=== PATIENT | male | born 1945 | race Caucasian/White ===

== ENCOUNTER 2017-11-10 10:33 | Emergency (ER) | payer OTHER, MEDICARE ==
[~2017-11-10] VITALS: Ht 172.7 cm; Wt 79.5 kg
[~2017-11-10 10:33] MED LIST: SYNT200T PO; ZITH250T PO
[2017-11-10 10:54] VITALS: BP 204/93; PULSE 57; RESP 18; TEMP 97.8; O2SAT 98
[2017-11-10 11:28] VITALS: BP 205/99; PULSE 58; RESP 17; TEMP 98; O2SAT 97
[2017-11-10] MEDS ORDERED: LEVO.2 PO (11:30)
[2017-11-10] MEDS ORDERED: CEPH-459 PO (11:32)
[2017-11-10] MEDS ORDERED: SULFAMETHOXAZOLE-TRIMETHOPRIM DS 800-160 MG TAB PO ONE (11:45)
[2017-11-10] MEDS ORDERED: BACT800T5 PO (11:45)
--- NOTE | 2017-11-10 11:45 | PD ---
HPI Chief Complaint: Skin Problem Time Seen by Provider: 11:14 Travel History International Travel<30 days: No Contact w/Intl Traveler<30days: No Traveled to known affect area: No History of Present Illness HPI The patient is a 72-year-old male who presents to the emergency department for a wound on the left lower extremity. The patient states he noticed the wound on the left lower extremity last week, initially thought he might have been bitten by an insect. The areas was slightly painful, erythematous, and swollen. The patient was seen at the [place] [facility] on Friday and they prescribed Keflex. He called the [facility] earlier today and they referred him to the emergency department. He denies any fever, chills, or sweats. He denies any trauma to the left lower extremity. He denies any history of repetitive MRSA infections, diabetes, or immunosuppressive disorders. He does have a history of hypothyroidism for which he takes levothyroxine. Symptoms are mild to moderate. PFSH Past Medical History High Cholesterol: Yes Thyroid Disease: Yes Influenza Vaccination: No Past Surgical History Surgical History: No Previous Surgery Social History Alcohol Use: Yes (social) Tobacco Use: No Substance Use: No Allergies-Medications (Allergen,Severity, Reaction): Coded Allergies: No Known Allergies (Unverified , 12/11/15) Reported Meds & Prescriptions Reported Meds & Active Scripts Active Reported Keflex (Cephalexin) 250 Mg Cap 250 Mg PO Q6H Synthroid (Levothyroxine Sodium) 200 Mcg Tab 200 Mcg PO DAILY Review of Systems Except as stated in HPI: all other systems reviewed are Neg General / Constitutional: No: Fever, Chills Musculoskeletal: No: Myalgias, Arthralgias Skin: Positive Other Neurologic: No: Paresthesia, Sensory Disturbance Physical Exam Narrative GENERAL: Awake, alert, pleasant 72-year-old male who appears his stated age and is in no acute respiratory distress. SKIN: Focused skin assessment warm/dry. HEAD: Atraumatic. Normocephalic. EYES: No injection or drainage. MUSCULOSKELETAL: Patient has an area of erythema on anterior aspect of the distal left tibia/fibula with a central focal area that is slightly swollen and tender to palpation. Mild induration. Positive dorsalis pedal pulse. NEUROLOGICAL: Awake and alert. No obvious cranial nerve deficits. Motor grossly within normal limits. Normal speech. PSYCHIATRIC: Appropriate mood and affect; insight and judgment normal. Data Data Last Documented VS Vital Signs Date Time Temp Pulse Resp B/P (MAP) Pulse Ox O2 Delivery O2 Flow Rate FiO2 11/10/17 11:28 58 17 11/10/17 11:28 98.0 205/99 (134) 97 Room Air Orders Orders Sulfamet-Trimeth Ds 800-160 Mg (Bactrim (11/10/17 11:45) Wound Culture And Gram Stain (11/10/17 11:38) MDM Medical Decision Making Medical Screen Exam Complete: Yes Emergency Medical Condition: Yes Medical Record Reviewed: Yes Differential Diagnosis Differential diagnosis includes abscess, cellulitis, infected wound, puncture wound, peripheral vascular disease, ulcer. Narrative Course The patient appears to have a superficial abscess with mild surrounding cellulitis. Verbal consent was obtained, the area was cleaned with alcohol and an 18-gauge needle was used to unroofed the swollen area, I was able to express some purulent discharge. A culture was obtained and sent to lab. The patient then had a dry sterile dressing applied and the surrounding erythema was marked with a surgical marking pen. The patient is advised to follow-up with the [place] [facility] 48 hours for reevaluation. I will add Bactrim to cover against MRSA. He is advised to continue Keflex. Return if symptoms worsen or progress. Procedures Procedure Narrative Verbal consent was obtained for needle incision and drainage of a superficial abscess to left lower extremity. The area was cleaned with alcohol, an 18- gauge needle was used to unroofed the superficial abscess, expressing purulent drainage which was cultured and sent to lab. The area was left open. A dry sterile dressing was applied. The patient tolerated the procedure without difficulty. There was no obvious complications. Diagnosis Primary Impression: Abscess Patient Instructions: General Instructions Additional Instructions: Warm compresses throughout the day. Bactrim as directed. Continue Keflex. Follow-up with the [place] [facility] in 48 hours. Return if symptoms worsen or progress. Med/Other Pt SpecificInfo: Prescription(s) given Scripts Sulfamethoxazole-Trimethoprim (Bactrim DS) 800-160 Mg Tab 1 TAB PO BID for Infection, #14 TAB 0 Refills Prov: Bentley Mccord MD 11/10/17 Disposition: 01 DISCHARGE HOME Condition: Stable Bentley Mccord MD Nov 10, 2017 11:45
== END 2017-11-10 12:07 | disposition home or self-care (01) ==
LOC: NEPD 10:33
DX: L02.416 Cutaneous abscess of left lower limb (principal); E03.9 Hypothyroidism, unspecified
CPT/HCPCS: 10140; 87070